=== PATIENT | male | born 1960 | race American Indian/Alaskan Native ===

== ENCOUNTER 2020-11-22 09:04 | Emergency (ER) | payer SELFPAY ==
[2020-11-22 09:43] VITALS: BP 111/59
== END 2020-11-22 10:00 | disposition left against medical advice (07) ==
LOC: ED 09:04
DX: R06.02 Shortness of breath (principal); Z53.21 Procedure and treatment not carried out due to patient leaving prior to being seen by health care provider

== ENCOUNTER 2020-11-23 08:33 | Emergency (ER) | payer MEDICARE ==
[2020-11-23 09:08] VITALS: BP 119/73
[2020-11-23] MEDS ORDERED: predniSONE 20 MG TAB PO ONE (09:18)
[2020-11-23] MEDS ORDERED: IPRATROPIUM 0.02% NEBU 2.5 ML IH ONE (09:18)
[2020-11-23] MEDS ORDERED: ALBUTEROL 2.5 MG/3 ML NEBU IH ONE (09:18)
--- NOTE | 2020-11-23 09:22 | Emergency Department Report ---
ED General Adult HPI - General Chief complaint: Dyspnea/Respdistress Stated complaint: SOB Time Seen by Provider: 11/23/20 09:14 Source: patient Mode of arrival: Ambulatory Limitations: No Limitations - History of Present Illness Initial comments: 60-year-old male patient with history of asthma and HIV presents emergency department with complaints of cough and shortness of breath for 3 days. Patient received his second dose of COVID-19 vaccination series yesterday. He is unsure of his last CD4 count. Denies fever, chills, hemoptysis, vomiting, diarrhea, chest pain. Denies all other complaints at this time. - Related Data Previous Rx's Medication Instructions Recorded Last Taken Type Albuterol Sulfate [Proair 90 mcg IH Q4H PRN #1 aer.pw.bas 11/23/20 Unknown Rx Digihaler] Benzonatate [Tessalon Perles] 200 mg PO Q8HR #30 capsule 11/23/20 Unknown Rx Sulfamethoxazole/Trimethoprim 2 each PO TID 21 Days tablet 11/23/20 Unknown Rx [Bactrim DS TAB] Allergies Allergy/AdvReac Type Severity Reaction Status Date / Time No Known Allergies Allergy Unverified 11/22/20 09:43 ED Review of Systems ROS: Stated complaint: SOB Other details as noted in HPI Other: GENERAL: Negative for fever, chills, weight change, anorexia, fatigue. ENT: Negative for ear pain, difficulty hearing, sore throat, nasal congestion, epistaxis. CARDIOVASCULAR: Negative for chest pain, palpitations, lower extremity swelling. PULMONARY: Positive for cough and shortness of breath. GASTROINTESTINAL: Negative for abdominal pain, nausea, vomiting, diarrhea, constipation. MUSCULOSKELETAL: Negative for joint pain, joint swelling, myalgias, back pain, neck pain. NEUROLOGICAL: Negative for headache, seizure, syncope, paresthesias, weakness. INTEGUMENTARY: Negative for erythema, rash, diaphoresis, laceration, ecchymosis. HEMATOLOGICAL: Negative for hemoptysis, hematemesis, hematochezia, hematuria. PSYCHIATRIC: Negative for hallucinations, suicidal ideation, homicidal ideation, anxiety, depression. ED Past Medical Hx - Past Medical History Previous Medical History?: Yes Hx Deep Vein Thrombosis: Yes Hx Asthma: Yes Hx HIV: Yes - Surgical History Past Surgical History?: No - Social History Smoking Status: Current Every Day Smoker Substance Use Type: Alcohol - Medications Home Medications: Home Medications Medication Instructions Recorded Confirmed Last Taken Type Albuterol Sulfate [Proair 90 mcg IH Q4H PRN #1 aer.pw.bas 11/23/20 Unknown Rx Digihaler] Benzonatate [Tessalon Perles] 200 mg PO Q8HR #30 capsule 11/23/20 Unknown Rx Sulfamethoxazole/Trimethoprim 2 each PO TID 21 Days tablet 11/23/20 Unknown Rx [Bactrim DS TAB] ED Physical Exam - General Limitations: No Limitations - Other Other exam information: General: Awake and alert. No acute distress. Head: Atraumatic, normocephalic. Eyes: EOMI. Pupils are equal and round. Normal sclera and conjunctiva. ENT: Oral mucosa is moist. Normal pharyngeal exam. Neck: Supple. No lymphadenopathy. Pulmonary: No respiratory distress. Diffuse inspiratory and expiratory wheezing bilaterally. Scattered rhonchi throughout. Cardiac: Regular rate and rhythm. Pulses are palpable and equal bilaterally. No lower extremity cyanosis or edema. Skin: Warm and dry. No rashes. Abdomen: Soft, non-tender, non-protuberant. No guarding, rigidity, or rebound. Bowel sounds are normal. No organomegaly or masses noted. Back: Normal alignment. No CVA tenderness. Extremities: Symmetrical. Full range of motion intact. Neurological: Alert and oriented, appropriately interactive, no focal deficits. Psych: Cooperative. Appropriate mood and affect. Speech is evenly metered. Thoughts are logically construed. ED Course Vital Signs 11/23/20 09:05 Temperature 99.6 F Pulse Rate 69 Respiratory 20 Rate Blood Pressure 119/73 O2 Sat by Pulse 96 Oximetry ED Medical Decision Making - Lab Data Result diagrams: 11/23/20 09:21 11/23/20 09:21 - Radiology Data [facility] [address] [place] [address] XRay Report Signed Patient: MANUELA WALTON MR#: [id number] 5 : 1960 Acct:[id number] Age/Sex: 60 / M ADM Date: 11/23/20 Loc: ED Attending Dr: Ordering Physician: ANTELMO COSTA Date of Service: 11/23/20 Procedure(s): XR chest routine 2V Accession Number(s): [id number] cc: ANTELMO COSTA Fluoro Time In Minutes: CHEST 2 VIEWS INDICATION: SOB/wheezing; hx HIV; covid-19 vaccine yesterday. COMPARISON: FINDINGS: Support devices: None. Heart: Within normal limits. Lungs: No acute air space or interstitial disease. Pleura: Scarring left base with possible small left pleural effusion. No pneumothorax. Additional findings: None. IMPRESSION: 1. Questionable small left pleural effusion. Signer Name: Cameron Best MD Signed: 11/23/2020 9:58 AM Workstation Name: [id number] Transcribed By: JENNIFER Dictated By: Cameron Best MD Electronically Authenticated By: Cameron Bset MD Signed Date/Time: 11/23/20957 DD/ 6 TD/TT: - Medical Decision Making Differential diagnosis including but not limited to: pneumonia, influenza, pertussis, congestive heart failure, asthma, COPD, pleural effusion, pneumothorax, opportunistic infection On reevaluation, patient is stable and symptoms have improved. No hypoxia, no respiratory distress. He is sitting upright, talking on his cell phone, and asking for a sandwich. Repeat pulmonary exam demonstrates significantly improved air movement and near complete resolution of wheezing. Labs are unremarkable. Chest x-ray shows scarring of the lung base with questionable small left pleural effusion. Patient states he is compliant with his antiretroviral therapy medications but cannot recall his last CD4 count and is not currently under the care of an infectious disease specialist. Due to the patient's underlying immunosuppression (presumably worsened by recently receiving his COVID-19 vaccination while feeling ill) in the setting of known chronic lung disease, he will be covered empirically for PCP pneumonia with Bactrim per current UpToDate guidelines. Additionally, patient will be prescribed antitussives and beta agonist inhaler. Glucocorticoids withheld due to patient's underlying immunosuppression. Referred to primary care provider, infectious disease specialist, and particle board supervisor for close outpatient follow-up. Patient expressed understanding and is agreeable to plan of care. Strict r eturn precautions provided. Repeat exam is unremarkable and benign. History, exam, diagnostic testing, and current condition do not suggest worrisome pathology to warrant further testing, continued ED treatment, admission, or surgical evaluation at this point. Given the low probability of a significant medical illness, it would be more likely to result in harm than benefit to perform further testing at this stage. Discussed findings, presumptive diagnosis, need for follow-up and specific signs/symptoms that should prompt immediate return to the emergency department. Instructions were explained in detail to the patient in addition to giving written discharge information. Patient expressed understanding and was given the opportunity to ask questions, all of which were satisfactorily answered prior to discharge home. Critical care attestation.: If time is entered above; I have spent that time in minutes in the direct care of this critically ill patient, excluding procedure time. ED Disposition Clinical Impression: COVID-19 vaccine administered, History of HIV infection Asthma exacerbation Qualifiers: Asthma severity: unspecified severity Asthma persistence: unspecified Qualified Code(s): J45.901 - Unspecified asthma with (acute) exacerbation Disposition: DC-01 TO HOME OR SELFCARE Is pt being admited?: No Does the pt Need Aspirin: No Condition: Stable Instructions: Asthma, Adult Additional Instructions: Use Albuterol inhaler as directed. Take Tessalon as directed for cough. Honey is an excellent natural cough suppressant. Avoid environmental triggers, which may worsen your asthma. Take Bactrim with food until complete. Increase your dietary intake of probiotic rich foods while taking this medication. Rest. Drink plenty of fluids. Follow-up with primary care provider, infectious disease, and pulmonology this week. Call tomorrow to schedule appointments. Bring a copy of today's chest x- ray results with you to your follow-up appointment. Return to the emergency department immediately for new or worsening symptoms. Specifically, return to the emergency department immediately for fever, difficulty breathing, chest pain, rash, mental status changes, or any other concerns. Prescriptions: Sulfamethoxazole/Trimethoprim [Bactrim DS TAB] 2 each PO TID 21 Days tablet Albuterol Sulfate [Proair Digihaler] 90 mcg IH Q4H PRN #1 aer.pw.bas PRN Reason: Wheezing Benzonatate [Tessalon Perles] 200 mg PO Q8HR #30 capsule Referrals: LESLIE DIANE MD [Staff Physician] - 3-5 Days EBENEZER CANTRELL MD [Staff Physician] - 3-5 Days [facility] [Outside] - 3-5 Days [facility] [Outside] - 3-5 Days [facility] [Outside] - 3-5 Days [facility] [Provider Group] - 3-5 Days [facility] [Provider Group] - 3-5 Days Forms: Work/School Release Form(ED) Time of Disposition: 10:52
[2020-11-23 09:33] LABS: Basophils # (Auto) 0.1 K/mm3 (0.0-0.1); Basophils % (Auto) 0.9 % (0.0-1.8); Eosinophils # (Auto) 0.5 K/mm3 (0.0-0.4); Eosinophils % (Auto) 8.2 % (0.0-4.3); Hematocrit 40.6 % (35.5-45.6); Lymphocytes # (Auto) 1.1 K/mm3 (1.2-5.4); Lymphocytes % (Auto) 19.2 % (13.4-35.0); Mean Corpuscular HGB Conc 35 % (32-34); Mean Corpuscular Volume 95 fl (84-94); Monocytes # (Auto) 0.9 K/mm3 (0.0-0.8); Monocytes % (Auto) 15.9 % (0.0-7.3); Platelet Count 298 K/mm3 (140-440); Red Blood Count 4.26 M/mm3 (3.65-5.03); Red Cell Distribution Width 14.3 % (13.2-15.2)
[2020-11-23] MEDS ORDERED: IPRATROPIUM/ALBUTEROL SULFATE 3 ML AMPUL.NEB IH ONE ×2 (09:46→13:47)
[2020-11-23 09:54] LABS: Alanine Aminotransferase 12 units/L (7-56); Albumin 4.7 g/dL (3.9-5); BUN/Creatinine Ratio 19; Blood Urea Nitrogen 17 mg/dL (9-20); Calcium 9.1 mg/dL (8.4-10.2); Hemolysis Index 5
--- NOTE | 2020-11-23 10:02 | XRay Report ---
CHEST 2 VIEWS INDICATION: SOB/wheezing; hx HIV; covid-19 vaccine yesterday. COMPARISON: FINDINGS: Support devices: None. Heart: Within normal limits. Lungs: No acute air space or interstitial disease. Pleura: Scarring left base with possible small left pleural effusion. No pneumothorax. Additional findings: None. IMPRESSION: 1. Questionable small left pleural effusion. Signer Name: Cameron Best MD Signed: 11/23/2020 9:58 AM Workstation Name: [id number]
== END 2020-11-23 11:09 | disposition home or self-care (01) ==
LOC: ED 08:33
DX: J45.901 Unspecified asthma with (acute) exacerbation (principal); B20 Human immunodeficiency virus [HIV] disease; F17.200 Nicotine dependence, unspecified, uncomplicated; Z23 Encounter for immunization; Z79.899 Other long term (current) drug therapy
CPT/HCPCS: 36415; 71046; 80053; 83735; 85025; 94640; 99284; J7512